=== PATIENT | female | born 1945 | race Caucasian/White ===

== ENCOUNTER 2019-05-23 19:27 | Emergency (ER) | payer MEDICARE ==
[~2019-05-23] VITALS: Ht 162.6 cm; Wt 95.2 kg
[2019-05-23] MEDS ORDERED: Zocor20 MG PO (20:06)
[2019-05-23] MEDS ORDERED: Augmentin 875-1 EACH PO (20:49)
[2019-05-23] MEDS ORDERED: KETO10 PO (20:49)
== END 2019-05-23 20:59 | disposition home or self-care (01) ==
LOC: ER 19:27
DX: K04.7 Periapical abscess without sinus (principal); E78.5 Hyperlipidemia, unspecified; Z88.1 Allergy status to other antibiotic agents; Z79.899 Other long term (current) drug therapy; Z87.891 Personal history of nicotine dependence
CPT/HCPCS: 96372; 99282-25; J1885